=== PATIENT | female | born 1940 | race Caucasian/White ===

== ENCOUNTER 2021-08-23 06:20 | Inpatient (IN) | payer MEDICARE, OTHER ==
[~2021-08-23] VITALS: Ht 173 cm; Wt 79.0 kg
[~2021-08-23 06:20] MED LIST: ASPIRIN EC81 MG PO; BUSPIRONE HCL15 MG PO; DIAZEPAM 5MG TAB5 MG PO; FEOSOL325 MG PO; LOVASTATIN20 MG PO; NEURONTIN300 MG PO; NORVASC5 MG PO; OXYCODONE-ACET1 EAC1 PO; PLAVIX75 M1 PO; SEROQUEL 25MG T25 MG PO; TIZANIDINE HCL4 M1 PO; TOPROL XL 25MG25 MG PO
--- NOTE | 2021-08-23 13:07 | NUR ---
PT. HAD A LDATHR THIS DATE. PT. WILL D/C HOME. SHE HAS A ROLLING WALKER. SHE REQUESTS [facility] FOR PT.
[2021-08-24 07:07] LABS: BASOPHIL 0.3 % (0-2); EOSINOPHIL 0.9 % (0-7); HGB 8.7 g/dl (12.5-16.0); LYMPHOCYTE 18.8 % (15-48); MCH 33.3 pg (25.0-31.0); MCHC 33.5 g/dL (32.0-36.0); MCV 99.6 fL (78.0-100.0); MONOCYTE 10.4 % (0-12); MPV 10.2 fL (6.0-9.5); NEUTROPHIL 69.2 % (41-80); NRBC 0; PLT 232 K/uL (150-400); RBC 2.61 M/uL (4.20-5.40); RDW 15.8 % (11.5-14.0); WBC 12.7 K/uL (4.0-10.5)
[2021-08-24 07:37] LABS: BUN/CREAT RATIO (CALC) 11.5 RATIO; CREATININE 0.78 mg/dL (0.51-0.95); POTASSIUM 3.6 mmol/L (3.5-5.1)
[2021-08-24] MEDS ORDERED: OXYCODONE-ACET1 EAC1 PO (08:54)
[2021-08-24] MEDS ORDERED: XARELTO10 MG PO (08:54)
[2021-08-24] MEDS ORDERED: FEOSOL325 MG PO (08:54)
--- NOTE | 2021-08-24 10:06 | NUR ---
PT D/C HOME THIS DATE. PT. HAS A WALKER. SHE REQUESTS [facility]. PT. SIGNED CHOICE FORM AND COOPY GIVEN.
== END 2021-08-24 11:00 | disposition home health service (06) | DRG 470 ==
LOC: FAS 06:20 → FOR 08:30 → FOFB 10:34 → FAS 10:34 → FOFB 08-24 11:00 → FAS 08-24 11:00 → FOFB 08-24 11:00
PROVIDERS: ADMIT Legal Medicine
PROC: 0SRB04Z Replacement of Left Hip Joint with Ceramic on Polyethylene Synthetic Substitute, Open Approach (ICD-10-PCS; principal; 2021-08-23 08:30)
DX: M16.12 Unilateral primary osteoarthritis, left hip (principal); R11.2 Nausea with vomiting, unspecified; E78.5 Hyperlipidemia, unspecified; I10 Essential (primary) hypertension; I25.10 Atherosclerotic heart disease of native coronary artery without angina pectoris; F41.9 Anxiety disorder, unspecified; F32.A Depression, unspecified; Z95.5 Presence of coronary angioplasty implant and graft; Z88.8 Allergy status to other drugs, medicaments and biological substances; Z79.82 Long term (current) use of aspirin; Z79.899 Other long term (current) drug therapy; Z95.1 Presence of aortocoronary bypass graft; Z90.49 Acquired absence of other specified parts of digestive tract
CPT/HCPCS: 36415; 73501; 76000; 80048; 85025; 86850; 86900; 86901; 94010; 97110; 97162; 97166; 97530-GP; 97535; C1776; J0171; J0697; J1170; J1885; J2270; J2405; J2704; J2710; J2795; J3010; J7120

== ENCOUNTER 2022-02-08 09:49 | Emergency (ER) | payer MEDICARE, OTHER ==
[~2022-02-08 09:49] MED LIST changes: +XARELTO10 MG PO
[2022-02-08 13:32] LABS: BASOPHIL 0.5 % (0-2); EOSINOPHIL 0.3 % (0-7); HCT 35.8 % (37.0-47.0); HGB 12.1 g/dl (12.5-16.0); LYMPHOCYTE 20.4 % (15-48); MCH 34.2 pg (25.0-31.0); MCHC 33.8 g/dL (32.0-36.0); MCV 101.1 fL (78.0-100.0); MONOCYTE 8.8 % (0-12); MPV 10.1 fL (6.0-9.5); NEUTROPHIL 69.6 % (41-80); NRBC 0.3; PLT 317 K/uL (150-400); RBC 3.54 M/uL (4.20-5.40); RDW 17.1 % (11.5-14.0)
[2022-02-08 13:42] LABS: BILIRUBIN NEGATIVE (NEGATIVE); BLOOD NEGATIVE Ery/uL (NEGATIVE); CLARITY CLEAR (CLEAR); COLOR YELLOW (YELLOW); GLUCOSE (U) NORMAL (NORMAL); LEUKOCYTES NEGATIVE Leu/uL (NEGATIVE); NITRITE NEGATIVE (NEGATIVE); PROTEIN NEGATIVE (NEGATIVE); UROBILINOGEN 0.2 mg/dL (0.2-1.0); pH 6.5 (5.0-9.0)
[2022-02-08 14:37] LABS: ALBUMIN 3.8 g/dL (3.4-5.0); ALKALINE PHOSHATASE 86 U/L (46-116); ALT 28 U/L (14-59); AST 19 U/L (15-37); BILIRUBIN - TOTAL 0.9 mg/dL (0.2-1.0); BUN 13 mg/dL (7-18); BUN/CREAT RATIO (CALC) 18.1 RATIO; CHLORIDE 102 mmol/L (98-107); CO2 (BICARBONATE) 26 mmol/L (21-32); CREATININE 0.72 mg/dL (0.51-0.95); GLOBULIN (CALCULATION) 2.7 g/dL; GLUCOSE 95 mg/dL (74-106); LIPASE 116 U/L (73-393); MAGNESIUM 2.1 mg/dL (1.8-2.4); POTASSIUM 3.9 mmol/L (3.5-5.1); TOTAL PROTEIN 6.5 g/dL (6.4-8.2)
[2022-02-08 14:38] LABS: C-REACTIVE PROTEIN < 0.20 mg/dL (<=0.90)
[2022-02-08] MEDS ORDERED: NORCO 5-325 TA1 EACH PO (15:53)
== END 2022-02-08 16:45 | disposition home or self-care (01) ==
LOC: FER 09:49
PROVIDERS: Emergency Medicine
DX: M51.16 Intervertebral disc disorders with radiculopathy, lumbar region (principal); Z20.822 Contact with and (suspected) exposure to COVID-19
CPT/HCPCS: 36415; 73502; 80053; 81003; 82728; 83690; 83735; 84145; 84439; 85025; 86140; J1170; J2405; U0002